=== PATIENT | male | born 1985 | race Caucasian/White ===

== ENCOUNTER → 2023-01-24 | Outpatient (CLI) | payer BC, OTHER, SELFPAY | END | disposition home or self-care (01) | LOC: LABSPEC 10:43 | PROVIDERS: PCP Family Medicine; Visit Provider Surgery | DX: Z01.818 Encounter for other preprocedural examination (principal) | CPT/HCPCS: 87077; 87081 ==

== ENCOUNTER 2023-04-10 06:00 | Day surgery (SDC) | payer BC, OTHER, SELFPAY ==
[2023-04-10] VITALS (10 sets, daily range): BP systolic 105–137; BP diastolic 73–96; PULSE 56–90; RESP 14–18; TEMP 36.5–37; O2SAT 97–100; BMI 25.2
--- OUTSIDE RECORDS SUMMARY | 2023-04-10 06:20 | XMS RPT_ITS | CCD ---
Author Name Unknown Address [address] [place] [address] Organization [facility] Care Team Providers Care Consultant Rn Name Role Phone DAIANA AGUERO Referring Unavailable JOANNDARSHANA DO Admitting Unavailable JOANN, DARSHANA BUSTAMANTE Primary Care Unavailable JOANN, DARSHANA BUSTAMANTE Attending Unavailable CEDAR VALE, DAIANA Consulting Unavailable PROVIDER, UNKNOWN Consulting Unavailable CEDAR VALE, DAIANA Admitting Unavailable CEDAR VALE, DAIANA Primary Care Unavailable CEDAR VALE, DAIANA PAC Consulting Unavailable CEDAR VALE, DAIANA Attending Unavailable PROVIDER, UNKNOWN Consulting Unavailable CEDAR VALE, DAIANA Admitting Unavailable CEDAR VALE, DAIANA PAC Consulting Unavailable CEDAR VALE, DAIANA Primary Care Unavailable CEDAR VALE, DAIANA Attending Unavailable PROVIDER, UNKNOWN Consulting Unavailable REBECCA SEPULVEDA MD Admitting Unavailable REBECCA SEPULVEDA MD Primary Care Unavailable REBECCA SEPULVEDA MD Attending Unavailable CEDAR VALE, DAIANA Referring Unavailable CEDAR VALE, DAIANA Consulting Unavailable PROVIDER, UNKNOWN Consulting Unavailable Problems Problem Classification Problem Date Documented Da te Episodic/Chronic E Codes: Cut/pierceb (1 source) Contact with knife, initial encounter; Translations: [Contact with knife, initial encounter] Onset: 02-08-2023 Episodic Essential hypertension (2 sources) Essential (primary) hypertension; Translations: [Essential (primary) hypertension] Onset: 02-08-2023 Chronic Open wounds of extremities (3 sources) Laceration without foreign body of left middle finger without damage to nail, initial encounter; Translations: [Laceration without foreign body of left middle finger without damage to nail, initial encounter] Onset: 02-08-2023 Episodic Other screening for suspected conditions (not mental disorders or infectious disease) (1 source) Encounter for screening for lipoid disorders; Translations: [Encounter for screening for lipoid disorders] Onset: 02-24-2023 Episodic Results Test Name Value Interpretation Reference Range Facil ity Encounters Encounter Date Encounter Type Care Provider Facility Start: 02-24-2023 End: 02-24-2023 ambulatory [facility] Start: 02-24-2023 Encounter for blood typing [facility] Start: 02-08-2023 End: 02-08-2023 Emergency department patient visit [facility] Start: 09-27-2022 End: 09-27-2022 Emergency department patient visit REBECCA SEPULVEDA [facility] Start: 06-27-2022 End: 06-27-2022 ambulatory [facility] Payers Date Payer Category Payer Unknown [id number] 1985 Unknown [id number] 1985 Unknown [id number] 1985 Unknown [id number] Unknown [id number] Unknown [id number] Summary Purpose Family History No Family History Records FoundNo Family History Records Found Advance Directives No Advanced Directives Records FoundNo Advanced Directives Records Found Additional Source Comments (unrecognized sect ion and content) No Status Records FoundNo Status Records Found INFORMATION SOURCE (unrecogn ized section and content) DATE CREATED AUTHOR AUTHOR'S ORGANIZ ATION 03/08/2023 [facility] FOR RECORDS PERTAINING TO PATIENTS WHO ARE OR HAVE BEEN ENROLLED IN A CHEMICAL DEPENDENCY/SUBSTANCEABUSE PROGRAM, SOME INFORMATION MAY BE OMITTED. This clinical summary was aggregated from multiple sources. Caution should be exercised in using it in the provision of clinical care. This summary normalizes information from multiple sources, and as a consequence, information in this document may materially change the coding, format and clinical context of patient data. In addition, data may be omitted in some cases. CLINICAL DECISIONS SHOULD BE BASED ON THE PRIMARY CLINICAL RECORDS. [facility] [employer] [facility]. provides no warranty or guarantee of the accuracy or completeness of information in this document.
[2023-04-10 06:44] LABS: Hematocrit 41.4 % (40-54); Hemoglobin 13.7 g/dL (13.0-16.5); Mean Corp Hgb Conc 33.1 g/dL (32-36); Mean Corpuscular Hgb 28.3 pg (27.0-32.0); Mean Corpuscular Volume 85.5 fL (80-94); Mean Platelet Vol. 8.9 fl (6.2-12.0); Platelet Count 259 K/mm3 (150-450); RBC Distribution Width CV 12.2 % (11.6-14.6); RBC Distribution Width SD 37.9 fl (35.1-43.9); Red Blood Count 4.84 M/mm3 (4.6-6.2)
[2023-04-10] MEDS: Lactated Ringers 1,000 ML 15 ML IV ×2 (06:53→10:24)
[2023-04-10] MEDS: Cefazolin 2 GM in 0.9% Normal Saline (100mL Bag) 100 ML IV (07:30)
--- NOTE | 2023-04-10 07:34 | HP.PCM_ITS ---
History and Physical Date of Admission: 04/10/23 Date of Service: 01/24/23 MR#: [id number] Acct: [id number] Name: STEF COSTA Rep #: [id number] : 1985 Provider: Dr. Isra Louie MD Age/Sex: 37/M Location: [facility] Status: Signed Intake Vital Signs 01/24/2309:56 01/24/2310:42 Height 5 ft 10 in Weight: 182 lb BMI 26.1 BP 170/112 H 185/112 H Blood Pressure Location Rt brachial Rt brachial Position Sitting Respiration 18 Pulse 70 Pulse Source Monitor Temp 98.4 F Temp Source Temporal Pulse Oximetry (%) 98 Oxygen Delivery Method room air Intake Visit Reasons: SELF REFERRED HERNIA Chief Complaint: Self referred hernia [employer] Required: No Is patient in pain?: No Allergies No Known Allergies Allergy (Verified 01/24/23 09:58) Medications lisinopril 5 mg tablet 5 mg PO DAILY #30 tabs 01/02/19 [History Confirmed 01/02/19] metoprolol succinate 50 mg tablet,extended release 24 hr 50 mg PO DAILY #30 tabs 01/02/19 [History Confirmed 01/02/19] sulfuric acid 30 %-sulfonated phenol 50 % mucosal swab 1 applic mucous membrane ONCE PRN mouth pain #12 ea 01/02/19 [History] PFSH Medical History (Updated 01/24/23 @ 16:[address] Isra Louie MD) Abdominal pain Acid reflux Epigastric pain Hypertension Surgical History No history of previous surgery Family History Father Hypertension Cancer skin Social History Smokeless tobacco user: chewing tobacco second hand exposure: No alcohol intake: current alcohol intake frequency: a few times a month substance use type: does not use caffeine: Yes what type of physical activity do you participate in: none frequency: does not exercise seatbelt use: always HPI HPI HPI: Patient is a 37-year-old male who presents for a new right groin bulge. This finding was first noticed by patient over the summer. Patient is not able to recall how this occurred. He simply reports that he has a weird feeling and repeatedly corrects himself that it is not truly pain . Additionally he has noted some increase in the size. Other symptoms include: No change to bowel habits. 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 He denies any issues with his left groin. Patient has no personal history of smoking, but does confirm a present habit of chewing tobacco. Patient has no personal history of recurrent cutaneous infections including staph. He confirms a diagnosis of hypertension, but states that normally his blood pressure is under good control and reports his last reading at home of 130s over 85. This morning is noted to be severely elevated at 185/112. He denies any symptoms from this elevation and confirms that it is usually the case that he experiences these elevations whenever he goes to the doctor. Pertinent surgical history includes: No prior surgical history (it is noted that Mr. Costa was previously seen by Dr. Glasgow of general surgery in 2019 for a diagnosis of symptomatic cholelithiasis but ultimately did not undergo this procedure after he made some significant lifestyle changes?particularly with respect to his diet and this resulted in a 30 pound weight loss. ROS General General: No weight change, appetite, fatigue, colon cancer, breast cancer or weakness HEENT HEENT: No difficulty swallowing, eye injury, eye surgery, swollen glands or hoarseness Endo Endocrine: No thyroid disease, diabetes mellitus, thyroid cancer, Hair loss, heat intolerance or cold intolerance Skin Skin: No rash or changing moles Breast Breast: No left breast lump, right breast lump, nipple discharge, breast pain, abnormal mammogram, abnormal US or breast enlargement Musc Musculoskeletal: No back problems, arthritis, rheumatoid arthritis, gout or joint pain Cardio Cardiovascular: Yes high blood pressure; No murmur, pacemaker, heart disease, atrial fibrillation, heart attack, heart stent, palpitations, shortness of breat with exertion or chest pain Psych Psychiatric: No depression, anxiety or hearing voices Resp Respiratory: No shortness of breath, No sleep apnea, No cough, No COPD, No asthma, No emphysema and No wheezing Gastro Gastrointestinal: Yes abdominal pain, No nausea or vomiting, No diarrhea, No constipation, No blood in stool, No acid reflux, No hemorrhoids, No ulcers, Yes gallbladder problem and No black,tarry stools Nehemiah Hematologic: No blood thinners, No blood disorders, No bleeding, No anemia and No blood clots Neuro Neurologic: No system reviewed and no additional complaints, except as documented, No as per HPI, No abnormal gait, No abnormal hearing, No abnormal movements, No abnormal speech, No behavioral changes, No burning sensations, No confusion, No convulsions, No disequilibrium, No dizziness, No localized weakness, No frequent falls, No headache(s), No lack of coordination, No loss of vision, No memory loss, No numbness, No other visual disturbances, No radicular pain, No restless legs, No sensory deficit, No syncope, No tingling, No tremor(s), No weakness and No other Exam Const General: cooperative, healthy appearing, comfortable and no acute distress Orientation: alert, awake and oriented x3 Resp Effort & Inspection: normal respiratory effort GI Inspection: normal to inspection Palpation: soft Other: Nondistended, soft, nontender to palpation x4 quadrants. Possible small umbilical defect is palpated but patient has no tenderness with palpation. Other: Bilaterally descended testicles intact within the scrotum. On the left I appreciated what appears to be a small indirect defect with slight tenderness on exam. On the right identify a larger direct defect that is met with significant tenderness on exam. Both sides are freely reducible. Assessment and Plan Assessment and Plan (1) Inguinal hernia of right side without obstruction or gangrene: Status: Acute Comment: This is a 37-year-old male, otherwise healthy apart from a diagnosis of whitecoat hypertension, who presents with a several months long history of right-sided inguinal hernia that has become progressively more symptomatic. Patient is adamant that he does not experience true pain, but does experience discomfort and has noticed some increase in the size of this hernia. Because of this progression he is interested in proceeding with repair and actually met with a surgeon at his local hospital who offered open repair, but decided to seek consultation here for consideration of a second opinion. On exam identify a tender right inguinal hernia as well as a probable left via an indirect defect that is smaller in size. Given patient's experience in this exam, I have offered him a minimally invasive repair via robotic platform with mesh placement. I have shared with him that this approach would be ideal for dressing bilateral defects should they be found intraoperatively. I also shared the natural history of hernias as well as their development through reopening of the processes vaginalis. Mr. Costa expresses understanding of this information and appreciation for this detailed explanation. He also confirms that he is ready to schedule a procedure, but wishes to wait until after the new year. I have reviewed with him the postoperative expectation for no lifting greater than 10 pounds for 5 weeks postoperatively and he expresses understanding of reason for this restriction as well as a pledged to adhere to it postoperatively. Scratch that lastly, I shared with him my interest in obtaining a nasal swab to screen him for possible staph colonization of the nares. Plan: ? Plan for operative repair of right inguinal hernia (possible bilateral) via robot-assisted approach with mesh placement. Patient targeting late March versus early April 2023 ? Obtain nasal swab to assess for possible staph colonization today Orders: Orders MRSA/SAID SCREEN (PRE SURG) Today Z01.818 - Encounter for other preprocedural examination I have examined the patient and the H&P has been reviewed. There are no clinical changes since date of exam. He denies any questions and states he simply is ready to have his hernia repaired. His preoperative MRSA/staph screening returned negative. I did take the opportunity to provide a high level review of the information discussed in January since have been sometime since we last talked and reiterated the need to refrain from any lifting greater than 10 pounds for 5 weeks postop. I also shared with him my intent to proceed with repair of the right side and, if needed, the left side today. Both and Mrs. Costa nodded her head in agreement and denied any further questions. Therefore we will proceed to the operating room for right, possible bilateral robot-assisted inguinal hernia repair with mesh.
--- NOTE | 2023-04-10 09:27 | OP.PCM_ITS ---
Problems Associated Problem List Diagnoses (1) Inguinal hernia of right side without obstruction or gangrene: Report of Operation Date of Procedure: 04/10/23 Pre-Operative Diagnosis: Right inguinal hernia Post-Operative Diagnosis: Right indirect?type inguinal hernia Surgery/Procedure Performed:: Robot-assisted transabdominal preperitoneal hernia repair with mesh Description of Surgical Findings:: ? No visible defect of the left myopectineal space ? Indirect inguinal hernia on the right side with medium sized cord lipoma Surgeon: Isra Louie furnace operator: Cristina Su Type of Anesthesia: General/Supplemental Anesthesiologist: Mitul Harrington Specimen's removed: NA Estimated Blood Loss (mL): 5 Description of Procedure: After appropriate identification in the preoperative holding area the patient was brought to the operating room where he was positioned supine on the operating table. Preoperative antibiotics were completed and the patient was administered a general anesthetic. Patient's abdomen was then prepped and draped in usual sterile fashion. Formal timeout followed to confirm patient and procedure. Procedure was begun with an optical entry facilitated by Veress insufflation at Snyder's point. Once pneumoperitoneum reached a set point pressure of 15 mmHg the Veress needle was removed and a 8 mm robotic trocar was placed with a careful Optiview technique. Follow-up laparoscopic investigation revealed no inadvertent injury to the viscera below. A second port was placed a hand's breath right of this index port under laparoscopic visualization. Then a third and final robotic port was placed through the right upper quadrant under laparoscopic visualization. Patient was positioned in slight Trendelenburg and I performed a local block of the ilioinguinal nerve using 10 mL local anesthetic under laparoscopic visualization. The robot was docked in standard fashion. In this positioning I could visualize a indirect abdominal wall defect on the right but no defect on the left. Robotically, a peritoneal flap was created on the right extending from the medial umbilical ligament to the level of the ASIS (external) and was bluntly dissected to expose the medial parietal compartment and lateral visceral compartments. Medially I could visualize the pubic tubercle and Isidro's ligament while laterally I extended the dissection down to the level of the ASIS. The hernia sac was identified and from the cord structures deeply with selective use of monopolar energy. A medium cord lipoma was identified and removed from the canal with monopolar energy but left intact on its vascular pedicle. Beyond this, I did not visualize a direct or femoral/obturator defect adjacent to the clearly visible right femoral vein. The peritoneal flap was inspected to ensure that cord/vas was appropriately parietalized and there was no pulling of the cord structures or the viscera deeply over the psoas using the pull test. Once satisfied, a Bard 3D max, size large, mid mesh was placed into the abdomen along with suture. It was positioned within the preperitoneal pocket so that there was good medial and inferior overlap. It was then tacked to the adminiculum of the linea alba just superior to the pubic tubercle and laterally in a partial-thickness bites of the abdominal wall using a 3-0 Vicryl suture. The peritoneal flap was then closed with a running 3-0 V-Loc suture taking care to conceal the barbs of the suture beneath the peritoneum. Once the flap closure was complete, I undertook repair of peritoneal defects with 3-0 Vicryl. With the peritoneal defects closed, sutures were systematically removed from the peritoneum and the pneumoperitoneum was evacuated before removing the trocars. The port sites were closed at the skin with running 4-0 Monocryl in a subcuticular fashion. Steri-Strips and OpSite's were used as dressings. Patient's testicles were confirmed within the scrotum. Patient was then awoken from anesthetic and transferred to PACU for ongoing recovery. Grafts/Implants Used: 3D max mid anatomic mesh, lot [id number], reference [id number] Complications None Procedures Digestive 40xxx-49xxx: 61508 Lap ing hernia repair init
--- NOTE | 2023-04-10 09:29 | DCINST_ITS ---
Discharge Instructions Diet Discharge Diet: No restrictions Activity Discharge Activity: May Not Drive (While taking narcotic pain medication) and May Shower May shower in (days): 2 Ice area for (Minutes): 20 Lifting Restrictions: No lifting greater than 10 pounds for the next 5 weeks Dressing / Incision Call your doctor if your incision/area has: Continuous Slow Oozing, Increased Pain/ Swelling, Increased Redness, Foul Smelling Discharge and Swelling at the incision site Call your doctor if you observe: Fever of 101 or Higher, Inability to urinate and Inability to have a bowel movement Change Dressing in: 2 days (Please leave Steri-Strips intact until they fall off spontaneously or are taken off at your follow-up visit) Remove Dressing in: 2 days Cleanse incision/area with: Soap & Water and Keep Dressing Clean & Dry Follow Up Care Please Follow Up With: Isra Louie MD When: 1-2 weeks postop Test Results: Test results from this visit will be discussed in further detail at your follow- up appointment, if applicable. Discharge Plan Admission Primary Reason for Your Visit: Repair of right inguinal hernia Attending Provider: Isra Louie Primary Care Provider: Nathalie Mahajan Discharge Orders/Prescriptions Prescriptions: New oxycodone 5 mg tablet 5 mg PO Q6H PRN (Reason: pain) 3 Days Qty: 10 0RF Continued lisinopril 5 mg tablet 5 mg PO BID Qty: 30 Patient Comments: TAKE 1 TABLET BY MOUTH ONCE DAILY metoprolol succinate 50 mg tablet extended release 24 hr 50 mg PO DAILY Qty: 30 Patient Comments: TAKE 1 TABLET BY MOUTH ONCE DAILY Referrals / Follow Up: Nathalie Mahajan PA-C [Primary Care Provider] - Disposition Disposition (needs filled in before D/C Order can be placed): Home, Self Care
[2023-04-10] MEDS: Bupivacaine Mpf 0.5% 30 ML VIAL (09:32)
[2023-04-10] MEDS: oxyCODONE 5 MG Tablet PO (11:43)
== END 2023-04-10 13:43 | disposition home or self-care (01) ==
LOC: SDC 06:03 → AC 06:03
PROVIDERS: Anesthesiology; PCP Family Medicine; Referring Provider Surgery; Visit Provider Surgery
PROC: (CPT 49650; principal; 2023-04-10 07:10)
DX: K40.90 Unilateral inguinal hernia, without obstruction or gangrene, not specified as recurrent (principal); I10 Essential (primary) hypertension; D17.6 Benign lipomatous neoplasm of spermatic cord; K21.9 Gastro-esophageal reflux disease without esophagitis; F17.220 Nicotine dependence, chewing tobacco, uncomplicated
CPT/HCPCS: 49650; 00750; 55520; 85027; 93005; J7120; J2405

== ENCOUNTER 2023-09-15 12:03 | Emergency (ER) | payer BC, OTHER, SELFPAY ==
[2023-09-15 12:03] VITALS: BP 163/100; PULSE 87; RESP 16; TEMP 36.6; O2SAT 98; BMI 25.2
--- NOTE | 2023-09-15 12:19 | EX.ED.UPPERE ---
HPI <JOSR Diallo - Last Filed: 09/15/23 13:13> History of Present Illness Chief Complaint: Laceration Narrative Narrative: 37-year-old male had a laceration to his left finger from a table saw 2 days ago. He states he had a macerated laceration on the pad of the finger that was repaired at another ED with negative x-rays and dissolvable sutures placed. He is here to have the bump on the suture site evaluated to make sure it will heal well. He denies increased pain, redness or drainage. He is on prophylactic antibiotics. PFSH <JOSR Diallo - Last Filed: 09/15/23 13:13> [facility] Medical History (Updated 09/15/23 @ 12:27 by JOSR Diallo) Alcohol use Migraine headache History of diverticulitis Heartburn Chewing tobacco dependence Epigastric pain Acid reflux Abdominal pain Hypertension Home Medications ?Medication ?Instructions ?Recorded ?Last Taken ?Type lisinopril 5 mg tablet 5 mg PO BID #30 tabs 01/02/19 04/10/23 History metoprolol succinate 50 mg 50 mg PO DAILY #30 tabs 01/02/19 04/10/23 History tablet,extended release 24 hr Allergy/AdvReac Type Severity Reaction Status Date / Time No Known Allergies Allergy Verified 09/15/23 12:04 Family History Father Hypertension Cancer skin Surgical History (Updated 05/18/23 @ 14:[address] Isra Louie MD) Hx of colonoscopy Social History Smoking Status: Current every day smoker tobacco type: cigarettes and smokeless tobacco Smokeless tobacco user: chewing tobacco second hand exposure: No alcohol intake: current alcohol intake frequency: a few times a month substance use type: does not use caffeine: Yes what type of physical activity do you participate in: none frequency: does not exercise seatbelt use: always ROS <JOSR Diallo - Last Filed: 09/15/23 13:13> ROS ED ROS Narrative Constitutional: Negative for fever, chills. Neuro: Negative for motor/sensory dysfunction. Skin: Positive for wound. Musc: Negative for joint pain. EXAM <JOSR Diallo - Last Filed: 09/15/23 13:13> Physical Exam Narrative Exam Narrative: CONST: Patient sitting in no acute distress. SKIN: Color normal, no erythema. EXTREMITIES: Left middle finger pad sutures in place with swelling at the tip. Area is compressible but tender to palpation. There is no fluctuance, crepitus, erythema or drainage. Full range of motion of the middle digit, brisk cap refill. NEURO: Alert and answering questions appropriately. PSYCH: Normal affect. Const Vital Signs: 09/15/23 12:03 Temperature 98 F Temperature Source Temporal Pulse Rate 87 Respiratory Rate 16 Blood Pressure 163/100 H Blood Pressure Mean 121 Pulse Ox 98 Oxygen Delivery Method Room Air MDM <JOSR Diallo - Last Filed: 09/15/23 13:13> MDM MDM Narrative Medical decision making narrative: Patient is here to have his left middle finger laceration repair rechecked. It was done 2 days ago. There is swelling at the tip of the finger over the suture site. There is no signs of infection, abscess or drainage. The area was a complex repair and this appears to be soft tissue vaginal bleeding, swelling which hopefully should go down as it heals. There is no indication for suture repair and again no sign of infection. He is already on prophylactic antibiotics. He was given wound care instructions and discharged in stable condition. I have personally performed a face to face assessment of the patient and have reviewed the FREDDIE Note. I performed a substantive portion of the visit including all aspects of the following. My pérez findings include: History is patient had tablesaw injury to his finger, it was repaired at outside hospital but still swollen and sore, and there is a swelling at the tip. Exam is wound does not appear to be infected, sutures are in place, there is some blood clot and/or subcutaneous tissue mildly herniating along with the edges of the wound at the tip. Pressing this it is compressible but tender. No discharge or bleeding. Medical Decison Making I do not think I would modify this repair right now. Is still quite swollen, and I think that the borderline herniating soft tissue will settle back down in the home should go away when the swelling goes away, he is on prophylactic antibiotics which I agree with, he is comfortable with that plan we discussed management. Give him a fresh dressing. Other additions or changes: [None] <Dr. Abdulaziz Peck MD - Last Filed: 09/15/23 12:40> MDM MDM Narrative Medical decision making narrative: I have personally performed a face to face assessment of the patient and have reviewed the FREDDIE Note. I performed a substantive portion of the visit including all aspects of the following. My pérez findings include: History is patient had tablesaw injury to his finger, it was repaired at outside hospital but still swollen and sore, and there is a swelling at the tip. Exam is wound does not appear to be infected, sutures are in place, there is some blood clot and/or subcutaneous tissue mildly herniating along with the edges of the wound at the tip. Pressing this it is compressible but tender. No discharge or bleeding. Medical Decison Making I do not think I would modify this repair right now. Is still quite swollen, and I think that the borderline herniating soft tissue will settle back down in the home should go away when the swelling goes away, he is on prophylactic antibiotics which I agree with, he is comfortable with that plan we discussed management. Give him a fresh dressing. Other additions or changes: [None] Discharge Plan Triage Chief Complaint: Laceration ED Midlevel Provider: Angeline Bernardo ED Provider: Abdulaziz Peck Dx/Rx/DC Orders Clinical Impression: Laceration of left middle finger, Encounter for wound re-check Instructions: ED Laceration Minimize Scars Prescriptions: No Action lisinopril 5 mg tablet 5 mg PO BID Qty: 30 Patient Comments: TAKE 1 TABLET BY MOUTH ONCE DAILY metoprolol succinate 50 mg tablet extended release 24 hr 50 mg PO DAILY Qty: 30 Patient Comments: TAKE 1 TABLET BY MOUTH ONCE DAILY Primary Care Provider: Nathalie Mahajan Referrals: Nathalie Mahajan PA-C [Primary Care Provider] - Activity Restrictions/Additional Instructions: Keep clean, as it heals you can massage the area down gently. Print Language: Italian Disposition Disposition: Home, Self Care Discharge Date/Time: 09/15/23 13:08
[2023-09-15 13:05] VITALS: BP 127/63; PULSE 72; RESP 15; TEMP 36.3; O2SAT 99
== END 2023-09-15 13:08 | disposition home or self-care (01) ==
PROVIDERS: Emergency Provider Emergency Medicine; PCP Family Medicine; Visit Provider Emergency Medicine
DX: S61.213A Laceration without foreign body of left middle finger without damage to nail, initial encounter (principal); I10 Essential (primary) hypertension; F17.210 Nicotine dependence, cigarettes, uncomplicated; Z51.89 Encounter for other specified aftercare; W29.8XXA Contact with other powered hand tools and household machinery, initial encounter; Z79.899 Other long term (current) drug therapy; F17.220 Nicotine dependence, chewing tobacco, uncomplicated
CPT/HCPCS: 99282